=== PATIENT | male | born 1980 | race Caucasian/White ===

== ENCOUNTER 2021-03-23 19:31 | Emergency (ER) | payer OTHER ==
[~2021-03-23] VITALS: Ht 177.8 cm; Wt 106.6 kg
[~2021-03-23 19:31] MED LIST: AUGMENTIN 875875 MG PO; NORCO 5-325 TA1 EACH PO
[2021-03-23 20:20] LABS: ABSOLUTE BASOPHILS 0.1 thou/uL (0.0-0.2); ABSOLUTE EOSINOPHILS 0.1 thou/uL (0.0-0.7); ABSOLUTE LYMPHOCYTES 1.8 thou/uL (0.8-5.3); ABSOLUTE MONOCYTES 0.6 thou/uL (0.0-1.2); ABSOLUTE NEUTROPHILS 2.9 thou/uL (1.6-8.1); BASOPHILS 1.3 %; EOSINOPHILS 2.6 %; HEMATOCRIT 43.2 % (42.0-52.0); HEMOGLOBIN 14.6 gm/dL (14.0-18.0); LYMPHOCYTES 32.9 %; MCHC 33.8 g/dL (28.0-37.0); MCV 88.7 fL (80.0-100.0); MONOCYTES 10.2 %; MPV 8.3 fl. (7.2-11.1); NUCLEATED RBCS 0 /100WBC; PLATELET COUNT* 215 thou/uL (150-400); RBC 4.87 mil/uL (4.50-6.00); WBC 5.4 thou/uL (4.0-11.0)
[2021-03-23 20:32] LABS: APTT 28.8 Seconds (25.0-31.3); CALCIUM 8.8 mg/dL (8.5-10.1); CREATININE 1.2 mg/dL (0.6-1.3); POTASSIUM 3.9 mmol/L (3.5-5.1)
[2021-03-23 20:39] LABS: ALBUMIN 4.1 g/dL (3.4-5.0); TOTAL BILIRUBIN 0.2 mg/dL (<0.1-1.0); TOTAL PROTEIN 7.4 g/dL (6.4-8.2)
[2021-03-23 21:34] VITALS: BP 134/79
[2021-03-23] MEDS ORDERED: AMITRIPTYLINE H75 M1 PO (21:41)
[2021-03-23] MEDS ORDERED: MEDROLDOSEPACK PO (21:41)
--- NOTE | 2021-03-24 12:21 | EKG ---
[place] [address] ELECTROCARDIOGRAM REPORT Name: MANDA NELSON Room: [facility]#: [id number] Admission: 03/23/21 Attend Phys: Discharge: 03/23/21 Date of : 76 Date of Service: 03/23/212031 Report #: [id number] THIS REPORT FOR: //name// [facility] ED Test Date: 2021-03-23 Test Time: 20:32:08 Pat Name: MANDA NELSON Department: Room: Gender: Fans Clerk: : 1980 Requested By: Ana María Leiva Order Number: [id number] MD: Jayce Duong Measurements Intervals [place] Rate: 76 P: 18 [place]: 174 QRS: 54 QRSD: 108 T: 20 QT: 381 QTc: 429 Interpretive Statements Sinus rhythm Compared to ECG 05/19/2016 01:39:17 No significant changes Electronically Signed On 03-24-2021 12:21:06 [employer] by Jayce Duong [email or web address] <ELECTRONICALLY SIGNED> By: Jayce Duong MD, [facility] 03/24/21 1221 31 31 Jayce Duong MD, FAC /EPI
== END 2021-03-23 21:34 | disposition home or self-care (01) ==
LOC: M.ERS 19:31
PROVIDERS: Personal Emergency Response Attendant
DX: G51.0 Bell's palsy (principal); Z90.89 Acquired absence of other organs; Z98.890 Other specified postprocedural states